=== PATIENT | female | born 1990 | race African-American/Black ===

== ENCOUNTER 2019-10-12 17:21 | Emergency (ER) | payer MEDICAID ==
[~2019-10-12] VITALS: Ht 167.6 cm; Wt 53.0 kg
[2019-10-12 17:27] VITALS: BP 110/62
== END 2019-10-12 21:07 | disposition left against medical advice (07) ==
LOC: ER 17:21
DX: M25.512 Pain in left shoulder (principal); Z53.21 Procedure and treatment not carried out due to patient leaving prior to being seen by health care provider

== ENCOUNTER → 2024-12-21 | Outpatient (CLI) | payer BC | END | disposition home or self-care (01) | LOC: US 07:52 | DX: N64.4 Mastodynia (principal); R11.2 Nausea with vomiting, unspecified; Z98.82 Breast implant status | CPT/HCPCS: 76641; 76700 ==